=== PATIENT | male | born 1950 | race African-American/Black ===

== ENCOUNTER → 2016-08-18 | Outpatient (CLI) | payer OTHER ==
[~2016-08-18] VITALS: Ht 185.4 cm; Wt 111.1 kg
[~2016-08-18] MED LIST: CARAFATE1 GM PO; GABAPENTIN; GILPIZIDE; GLIPIZIDE 10 MG10 M1 PO; GLUCOPHAGE500 MG PO; HYDROCODON-ACE1 EAC5 PO; HYDROCODONE; IBUPROFEN 800800 M1 PO; LEVEMIR SUBQ; LINZESS290 MCG PO; LISINOPRIL; LISINOPRIL10 MG PO; METFORMIN 500500 MG PO; OXYCODON-ACETA1 EAC1 PO; PROTONIX40 M4 PO; VALIUM5 MG PO
--- NOTE | ~2016-08-18 | CATHLAB ---
[address] [place] [employer] [place] [address] INVASIVE PROCEDURE REPORT Name: TODDSYLVIA Room #: REG [facility]#: [id number] Admission: 08/18/16 Attend Phys: Catalino Perez MD Discharge: Date of : 52 Date of Service: 08/18/16 1039 Report #: [id number] THIS REPORT FOR: //name// CC: Catalino DamonLema DATE OF SERVICE: 08/18/2016 CARDIAC CATHETERIZATION INDICATIONS: Angina, abnormal stress test. Full risks, benefits and alternatives of cardiac catheterization were explained to the patient. All questions were answered. Informed consent was obtained. The right groin area was prepped and draped in a sterile manner. Lidocaine was given subcutaneously. A 4-Guamanian sheath was inserted into the right femoral artery via modified Seldinger technique. CORONARY ANATOMY: The left main artery is a large caliber vessel, with no flow-limiting lesions. The LAD is a moderate to large size caliber vessel, that tapers down to a small to moderate sized caliber vessel in the distal segment. There are no flow limiting lesions in the LAD. There are two diagonal arteries, with no flow-limiting lesions. The left circumflex artery is a moderate size caliber vessel, supplies 1 moderate size obtuse marginal artery. There were no flow-limiting lesions in the left circumflex artery. The RCA is a dominant vessel, supplying a and posterolateral branch. There were no flow-limiting lesions in the RCA. A left ventriculogram was performed revealing normal LV systolic function, ejection fraction of 55%. The LVEDP is approximately 20 mmHg. There is no gradient across the outflow tract. IMPRESSION: 1. Angiographically normal coronary arteries. 2. Normal LV systolic function. 3. Risk factor modification is recommended. <ELECTRONICALLY SIGNED> By: Catalino Preez MD 08/19/16 0902 [id number] Catalino Perez MD /nt
[2016-08-18 08:18] VITALS: BP 132/76
== END ==
LOC: CATH 07:51
DX: R94.39 Abnormal result of other cardiovascular function study (principal); I20.8 Other forms of angina pectoris; G62.9 Polyneuropathy, unspecified; K21.9 Gastro-esophageal reflux disease without esophagitis; I10 Essential (primary) hypertension; E11.9 Type 2 diabetes mellitus without complications; Z98.84 Bariatric surgery status

== ENCOUNTER 2018-11-21 11:05 | Emergency (ER) | payer OTHER ==
[~2018-11-21] VITALS: Ht 185.4 cm; Wt 108.9 kg
[~2018-11-21 11:05] MED LIST changes: +ATIVAN0.5 MG PO; +HYDROCODONE-AP1 EAC6 PO; +LANTUS SOL100 UNIT/1 SUBQ; +NORCO 10-325 T1 EACH PO
[2018-11-21] MEDS ORDERED: PREDNISONE 10 M10 MG PO (11:35)
[2018-11-21] MEDS ORDERED: NORFLEX100 MG PO (11:35)
[2018-11-21 13:09] VITALS: BP 141/71
== END 2018-11-21 13:09 | disposition home or self-care (01) ==
LOC: ER 11:05
DX: M54.41 Lumbago with sciatica, right side (principal); F41.9 Anxiety disorder, unspecified; E11.9 Type 2 diabetes mellitus without complications; I10 Essential (primary) hypertension; K21.9 Gastro-esophageal reflux disease without esophagitis; Z87.891 Personal history of nicotine dependence; Z90.49 Acquired absence of other specified parts of digestive tract

== ENCOUNTER → 2018-11-30 | Outpatient (CLI) | payer OTHER ==
[~2018-11-30] VITALS: Ht 182.9 cm; Wt 113.4 kg
[~2018-11-30] MED LIST changes: +GLUCOPHAGE XR500 MG PO; +LYRICA 75 MG CA75 MG PO; +MEDROLDOSEPACK PO; +NORFLEX100 MG PO; +ORPHENADRINE C100 M2 PO; +PREDNISONE 10 M10 MG PO; +SERTRALINE HCL50 MG PO; +TRAMADOL 50 MG50 MG PO
--- NOTE | ~2018-11-30 | HPC ---
[facility] [place] [address] PAIN MANAGEMENT CONSULTATION Name: SYLVIA TODDOSEVELT Room #: REG Drew Mildred#: [id number] Admission: 11/30/18 ������������������ Attend Phys: Sylvia Kelly DO Discharge: ������������������ Date of : 52 Report #: [id number] THIS REPORT FOR: //name// CC: Sylvia Frost MD DATE OF SERVICE: 11/30/2018 REFERRING PHYSICIAN: Klaudia Frost MD CHIEF COMPLAINT: Low back pain and right lower extremity pain with paresthesias. HISTORY OF PRESENT ILLNESS: As you know, the patient is a 68-year-old male who has been referred to our service for evaluation for lumbar radiculopathy. The patient has been experiencing chronic low back pain, right lower extremity pain with paresthesias for a prolonged period of time. He apparently has had multiple lumbar spine surgeries all of which provided some improvement, but only transiently. Due to lack of significant improvement and continued ongoing pain issues, the patient was subsequently referred to our clinic to discuss treatment options such as lumbar epidural injections. He underwent recent imaging that shows some changes at the L4-L5 level specifically with disk protrusion at the right lateral recess and lateral recess stenosis noted. Due to lack of improvement with conservative treatment options, the patient was subsequently referred to our clinic to discuss epidural injections under fluoroscopic guidance. PAST MEDICAL HISTORY: 1. Diabetes mellitus type 2. 2. Hypertension. 3. Peptic ulcer disease. 4. Herniorrhaphy. 5. Chronic lumbar spine pain. PAST SURGICAL HISTORY: 1. Lumbar back surgery in 2009 and lumbar back surgery in 1990. 2. Repeat lumbar spine surgery in 2009. 3. Gastric surgery. 4. Ventral incisional hernia repair. SOCIAL HISTORY: The patient denies tobacco, IV or illicit drug use. Denies any chronic alcohol use. He is unaccompanied at this visit. REVIEW OF SYSTEMS: Positive for low back pain, right lower extremity pain with paresthesias, numbness and tingling secondary to diabetes, excessive thirst, [facility] [address] [place] [address] PAIN MANAGEMENT CONSULTATION Name: SYLVIA TODD [id number] Admission: 11/30/18 ������������������ Attend Phys: Sylvia Kelly DO Discharge: ������������������ Date of : 52 Report #: [id number] urination due to diabetes, hypertension and insomnia. All other review of systems negative per 12-point review of systems other than those listed in the history of present illness. Pain impact score is 57/70 indicating severe interference of daily activities secondary to pain. ALLERGIES: No known drug allergies. CURRENT MEDICATIONS: Hydrocodone/acetaminophen 5/325 one tab p.o. q. 8 hours p.r.n. for pain, metformin XR 500 mg once a day, orphenadrine 100 mg twice a day, tramadol 50 mg p.o. q. 8 hours p.r.n. for pain, pregabalin 75 mg twice a day and sertraline 50 mg once a day. IMAGING: MRI of lumbar spine shows a right posterolateral L4-L5 disk protrusion with lateral recess stenosis. There is mild left neural foraminal stenosis, old right L4-L5 and L5-S1 laminotomy defects. PQRS: The patient has osteoarthritic changes in the lumbar spine and bilateral hips. No rheumatoid arthritis. He is placing pain intensity at 7/10. He is a fall risk, but has not had a fall in the last 3 months. He uses cane for ambulation and balance. He is not on blood thinners, but is treated for hypertension. He is on chronic opioids and has a low risk for opioid addiction. He is placing pain impact score of 57/70, severe interference of daily activities secondary to pain. PHYSICAL EXAMINATION: VITAL SIGNS: Blood pressure 150/84, pulse 75, respiratory rate 16 and unlabored. The patient is 98% on room air. Height 6 feet tall, weight 250 pounds and BMI calculated 33.9. GENERAL: Well-developed, well-nourished, well-hydrated 68-year-old male appearing stated age, pain is rated up to 7/10. HEENT: Normocephalic and atraumatic. Pupils are equal, round and reactive to light. Extraocular muscles are intact. Speech is fluent. LUNGS: Clear, no wheezing, rhonchi or rales. CARDIOVASCULAR: Regular. No appreciable gallop and no rub. ABDOMEN: Soft, mildly obese and normoactive bowel sounds. EXTREMITIES: Show no clubbing, no cyanosis and no edema. MUSCULOSKELETAL: Lower extremity strength equal and symmetrical 5/5, intact to light touch from L1 through S2 dermatomes. Seated straight leg raising is negative. Supine straight leg raising is positive on the right. Asia's test is negative. Modified Gaenslen's positive for axial low back pain. Ankle clonus is negative. Babinski is negative. Well-healed surgical scar over the lumbar spine. ASSESSMENT: 1. Symptomatic lumbar radiculopathy. 2. Lateral stenosis of the lumbar spine. [facility] [address] [place] [address] PAIN MANAGEMENT CONSULTATION Name: SYLVIA TODD Room #: REG ARTIE Levy#: [id number] Admission: 11/30/18 ������������������ Attend Phys: Sylvia Kelly DO Discharge: ������������������ Date of : 52 Report #: [id number] 3. Displacement of lumbar intervertebral disk with radiculopathy. 4. Mild neural foraminal stenosis of the lumbar spine. 5. Chronic intractable pain. PLAN: 1. Based on today's physical exam and history the patient has provided, the description the patient uses in regards to pain as well as the location of symptoms with radiation down the right leg likely source of the patient's pain is lumbar radiculopathy. The patient and I had a very long discussion today about the treatment options for lumbar radiculopathy. These treatment options would include physical therapy, stretching exercise, core strengthening and a concerted effort at weight loss. We discussed medication management with suggestions of initiation of neuropathic pain medications and if possible a consistent nonsteroidal anti-inflammatory. We discussed lumbar epidural injections under fluoroscopic guidance for which the patient was referred to our clinic. We also discussed spinal cord stimulator therapy and surgical options. After reviewing the risks and benefits of all the proposed treatment options, the patient chose to begin with a lumbar epidural injection under fluoroscopic guidance. 2. No medications provided at today's visit. The patient will continue current medical therapy as previously prescribed. 3. We will see the patient back in followup visit in approximately 2 weeks. At that time, review the efficacy of today's epidural injection and determine if the next in the series of epidural injections might be necessary. 4. The patient's blood pressure is noted to be elevated today. The patient does need to follow up with his PCP in regards to adjustment in his therapy. This is not related to chronic pain as his heart rate is not elevated and thus is not related to sympathetic discharge. I recommend the patient follow up with his PCP at his earliest convenience to make adjustments in this medication. 5. We wish to thank Dr. Klaudia Frost for the referral of the patient to our clinic. We will keep you apprised of his response to treatment as we address lumbar radicular symptoms. Again, we wish to thank you for the opportunity to see the patient in consultation. PROCEDURE NOTE DESCRIPTION OF PROCEDURE: Lumbar epidural steroid injection under fluoroscopic guidance. This is the first procedure of the first series that the patient is undergoing. After obtaining written consent, the patient was taken back to the fluoroscopy suite, placed in a prone position with pillow under the abdomen to decrease lumbar lordosis. The skin overlying the lumbosacral area was then prepped and draped in aseptic fashion. The lumbar vertebral interspace was then identified by AP fluoroscopy. The skin and subcutaneous tissue overlying the target site [address] [address] PAIN MANAGEMENT CONSULTATION Name: SYLVIA TODD Room #: REG [facility] CecyLatosha#: [id number] Admission: 11/30/18 ������������������ Attend Phys: Sylvia Kelly DO Discharge: ������������������ Date of : 52 Report #: [id number] of injection was anesthetized with 3 mL 1% lidocaine. A 20-gauge 3-1/2 inch Tuohy needle was then advanced under fluoroscopic guidance towards the epidural space using a right paramedian approach. The epidural space was identified using loss of resistance to air technique. After negative aspiration for heme or cerebrospinal fluid, a total of 1 mL of Omnipaque was injected. A lumbar epidurogram was confirmed using both AP and lateral fluoroscopy. After negative aspiration for heme or cerebrospinal fluid, 5 mL of a solution containing 2 mL 40 mg/mL 80 mg total triamcinolone and 3 mL of lidocaine 1% was injected in increments. Contrast spread was noted posterior epidural space. The needle was then retracted approximately half way and needle tract flushed with 1 mL of 1% lidocaine. Needle was then removed. There were no apparent sensory or motor deficits in the lower extremity following the procedure. A sterile bandage was placed over the injection site. The heart rate, pulse, oximetry and blood pressure were continuously monitored after the procedure. There were no apparent complications. The patient tolerated the procedure well and was carefully escorted to the recovery room in stable condition. There were no apparent complications. After meeting discharge criteria, the patient was then discharged home. ��������������������������������������������� ���������������������������������������� By: ��������������������������������������������� [id number] Sylvia Kelly DO /donovan
[2018-11-30 13:05] VITALS: BP 150/84
--- NOTE | 2018-11-30 13:39 | NUR ---
Pain Clinic Assessment: 1. History of Osteoarthritis: BACK History of Rheumatoid Arthritis: Not Applicable 2. Height: 6 ft. 0 in. 182.9 cm. Weight: 250.0 lb. oz. 113.400 kg. Patient's BMI: 33.9 3. Vital Signs: BP: 150/84 Pulse: 75 Resp: 16 Temp: 02 Sat: 98 ECG Mon: 4. Pain Intensity: 7 5. Fall Risk: Dizziness: Y Needs help standing or walking: Y Fallen in the last 3 months: N Fall risk comments: 6. Patient on Blood Thinner: None 7. History of Hypertension: Y 8. Opioid Therapy greater than 6 weeks: N Opiate Contract Signed: 9. Risk Assessment Tool Provided: LOW RISK 05/20 10. Functional Assessment Tool: 11. Recreational Drug Use: Never Drug Type: Tobacco Use: Never Smoker Tobacco Type: Amount or Packs/day: How Many Years: Alcohol Use: No Frequency: Quant:
== END | disposition home or self-care (01) ==
LOC: PAIN 11:54
DX: M51.16 Intervertebral disc disorders with radiculopathy, lumbar region (principal); M48.061 Spinal stenosis, lumbar region without neurogenic claudication; G89.29 Other chronic pain; I10 Essential (primary) hypertension; E11.9 Type 2 diabetes mellitus without complications; Z98.890 Other specified postprocedural states; Z79.899 Other long term (current) drug therapy; Z79.891 Long term (current) use of opiate analgesic; Z87.19 Personal history of other diseases of the digestive system

== ENCOUNTER → 2018-12-14 | Outpatient (CLI) | payer OTHER ==
[~2018-12-14] VITALS: Ht 182.9 cm; Wt 116.5 kg
--- NOTE | ~2018-12-14 | HPC ---
[facility] [place] [address] PAIN MANAGEMENT CONSULTATION Name: SYLVIA TODDOSEVELT Room #: REG ARTIE Mildred#: [id number] Admission: 12/14/18 ������������������ Attend Phys: Sylvia Kelly DO Discharge: ������������������ Date of : 52 Report #: [id number] THIS REPORT FOR: //name// CC: Sylvia Gaitan MD DATE OF SERVICE: 12/14/2018 CHIEF COMPLAINT: Low back pain, right lower extremity pain with paresthesias. HISTORY OF PRESENT ILLNESS: As you know, the patient is a 68-year-old male referred to our clinic for lumbar radiculopathy and to undergo epidural injections. He was referred to our clinic by his neurosurgeon, Dr. Julio Gaitan to trial these injections. He was seen 11/30/2018, underwent a lumbar epidural injection with improvement of about 50%, but unfortunately the symptom improvement was short-lived. He returns today in followup visit to undergo the second in the series per the request of his neurosurgeon. He is placing pain score at 7/10. He indicates pain is burning, aching, pulling, stabbing, exacerbated with walking, standing and sitting, improves with medications, lying down, heat and cold compresses and previous epidural injections. He returns today in followup visit requesting next in the series of lumbar epidural injections to address lumbar radicular symptoms, to address the findings at the L5-S1 level. ALLERGIES: No known drug allergies. CURRENT MEDICATIONS: Hydrocodone, metformin, orphenadrine, tramadol, pregabalin, sertraline. SOCIAL HISTORY: The patient denies tobacco, alcohol, IV or illicit drug use. He is unaccompanied today. IMAGING: No new imaging available. PQRS: The patient has arthritic changes of the lumbar spine, bilateral hips. No rheumatoid arthritis. Pain today is rated at 7/10. He is a fall risk, but has not had fallen in the last 3 months. He is using a cane for balance and ambulation. He is not on blood thinners. He is treated for hypertension. He is not on chronic opioids and has reported low opioid addiction potential based on our assessment tool. Pain impact score 57/70, severe interference of daily activities secondary to pain. PHYSICAL EXAMINATION: VITAL SIGNS: Blood pressure 119/74, pulse 80, respiratory rate 20 and [facility] [address] [place] [address] PAIN MANAGEMENT CONSULTATION Name: SYLVIA TODD TYESHA [facility] [id number] Admission: 12/14/18 ������������������ Attend Phys: Sylvia Kelly DO Discharge: ������������������ Date of : 52 Report #: [id number] unlabored. The patient is 100% on room air, height 6 feet tall, weight 256.8 pounds, BMI calculated 34.8. GENERAL: Well-developed, well-nourished, well-hydrated, exogenously obese 68-year-old male appearing stated age, pain is rated around 7/10. HEENT: Normocephalic, atraumatic. Pupils equal, round, reactive to light. EXTREMITIES: Show no clubbing, no cyanosis, and no edema. MUSCULOSKELETAL: Lower extremity strength is symmetrical 5/5, intact to light touch from L1 through S2 dermatomes. Seated straight leg raising negative. Supine straight leg raising positive right. ASSESSMENT: 1. Symptomatic lumbar radiculopathy. 2. Lateral stenosis of lumbar spine. 3. Displacement of lumbar intervertebral disk with radiculopathy. 4. Neural foraminal stenosis of the lumbar spine. 5. Lumbar degeneration. 6. Chronic intractable pain. PLAN: 1. The patient returns today in followup visit to undergo next in the series of epidural injections per the request of his neurosurgeon, Dr. Julio Gaitan. The patient has been advised of the risks and the benefits of repeating epidural injection. These risks include but are not necessarily limited to bleeding, bruising, infection, worsening pain, no relief of pain, also risk of temporary or permanent muscle weakness, temporary or permanent nerve damage, possible paralysis, post-dural puncture headache and . The patient states understood and wished to proceed. 2. No medication changes made at today's visit. The patient will continue current medical therapy as previously prescribed. 3. We will see the patient back in followup visit on an as needed basis for possible next in the series of epidural injections. PROCEDURE NOTE DESCRIPTION OF PROCEDURE: L5-S1 right paramedian epidural steroid injection under fluoroscopic guidance. This is the second procedure of the first series that the patient is undergoing. After obtaining written consent, the patient was taken back to the fluoroscopy suite, placed in a prone position with pillow under the abdomen to decrease lumbar lordosis. The skin overlying the lumbosacral area was then prepped and draped in aseptic fashion. The L5-S1 vertebral interspace was then identified by AP fluoroscopy. The skin and subcutaneous tissue overlying the target site of injection was anesthetized with 3 mL 1% lidocaine. [address] [address] PAIN MANAGEMENT CONSULTATION Name: SYLVIA TODD Room #: REG [facility] Mary Lou#: [id number] Admission: 12/14/18 ������������������ Attend Phys: Sylvia Kelly DO Discharge: ������������������ Date of : 52 Report #: [id number] A 20-gauge 3-1/2 inch Tuohy needle was then advanced under fluoroscopic guidance towards the epidural space using a right paramedian approach. The epidural space was identified using loss of resistance to air technique. After negative aspiration for heme or cerebrospinal fluid, a total of 1 mL of Omnipaque was injected. A lumbar epidurogram was confirmed using both AP and lateral fluoroscopy. After negative aspiration for heme or cerebrospinal fluid, 5 mL of a solution containing 1 mL, 40 mg per mL 40 mg total triamcinolone, 1 mL of Depo-Medrol 80 mg per mL 80 mg total Depo-Medrol and 3 mL of 1% lidocaine was injected in increments. Contrast spread was noted posterior epidural space. The needle was then retracted approximately half way and needle tract flushed with 1 mL of 1% lidocaine. Needle was then removed. There were no apparent sensory or motor deficits in the lower extremity following the procedure. A sterile bandage was placed over the injection site. The heart rate, pulse, oximetry and blood pressure were continuously monitored after the procedure. There were no apparent complications. The patient tolerated the procedure well and was carefully escorted to the recovery room in stable condition. There were no apparent complications. After meeting discharge criteria, the patient was then discharged home. ��������������������������������������������� ���������������������������������������� By: ��������������������������������������������� [id number] Sylvia Kelly DO /nt
[2018-12-14 09:51] VITALS: BP 119/74
--- NOTE | 2018-12-14 10:08 | NUR ---
Pain Clinic Assessment: 1. History of Osteoarthritis: BACK History of Rheumatoid Arthritis: Not Applicable 2. Height: 6 ft. 0 in. 182.9 cm. Weight: 256.8 lb. oz. 116.484 kg. Patient's BMI: 34.8 3. Vital Signs: BP: 119/74 Pulse: 80 Resp: 20 Temp: 02 Sat: 100 ECG Mon: 4. Pain Intensity: 7 5. Fall Risk: Dizziness: N Needs help standing or walking: Y Fallen in the last 3 months: N Fall risk comments: 6. Patient on Blood Thinner: None 7. History of Hypertension: Y 8. Opioid Therapy greater than 6 weeks: N Opiate Contract Signed: 9. Risk Assessment Tool Provided: LOW RISK 05/20 10. Functional Assessment Tool: 11. Recreational Drug Use: Never Drug Type: Tobacco Use: Never Smoker Tobacco Type: Amount or Packs/day: How Many Years: Alcohol Use: No Frequency: Quant:
== END | disposition home or self-care (01) ==
LOC: PAIN 06:52
DX: M51.16 Intervertebral disc disorders with radiculopathy, lumbar region (principal); M48.061 Spinal stenosis, lumbar region without neurogenic claudication; G89.29 Other chronic pain; I10 Essential (primary) hypertension; M16.0 Bilateral primary osteoarthritis of hip; Z79.899 Other long term (current) drug therapy; Z79.891 Long term (current) use of opiate analgesic; Z98.890 Other specified postprocedural states